=== PATIENT | female | born 1955 | race Caucasian/White ===

== ENCOUNTER → 2019-05-03 | Day surgery (SDC) | payer BC ==
[~2019-05-03] MED LIST: BENICAR HCT 401 EACH; FENTANYL CITRATE/PF 100MCG/2 ML INJ ONE; LIDOCAINE HCL 2% LOCAL INJ 5 ML SDV VIAL INJ ONE; MIDAZOLAM HCL 2 MG/2 ML VIAL ONE; PROPOFOL IV EMULSION 10 MG/ML 20 ML VIAL ONE
[2019-05-03 08:10] VITALS: BP 122/70
--- NOTE | 2019-05-03 13:33 | Operative Report ---
DATE OF PROCEDURE: 05/03/2019 SURGEON: Néstor Avalos MD PREOPERATIVE DIAGNOSIS: Gastroesophageal reflux disease. POSTOPERATIVE DIAGNOSES: 1. Hiatal hernia. 2. Gastroesophageal reflux disease. 3. Distal esophagitis. PREOPERATIVE INDICATION: Assess for mucosal disease. PROCEDURES: Esophagogastroduodenoscopy with distal esophageal biopsy (CPT 27526). ANESTHESIA: Moderate sedation. ASSISTANTS: None. FLUIDS: As per anesthesia. ESTIMATED BLOOD LOSS: Minimal. DRAINS: None. COMPLICATIONS: None. SPECIMENS: Cold forceps biopsy of distal esophagus. GRAFTS: None. FINDINGS: 1. Hiatal hernia. 2. Distal esophagitis. PROCEDURE IN DETAIL: The patient was brought to the endoscopy suite and sedated with IV propofol. A preprocedure pause was performed. An adult sized endoscope was introduced to the oropharynx and guided to the duodenum. No proximal duodenal abnormalities were noted. The stomach mucosa appeared fine. There was distal esophagitis at the GE junction and evidence for a hiatal hernia. A biopsy was obtained of the distal esophagus where the inflammation was noted. Prior to removing the endoscope, the stomach was desufflated. The endoscope was removed. The patient tolerated the procedure well. Type of wound was type 1, clean. Néstor Avalos MD C/MODL /[id number]
== END | disposition home or self-care (01) ==
LOC: OR 05:33
PROVIDERS: ATTEND Surgery
DX: K21.9 Gastro-esophageal reflux disease without esophagitis (principal); K20.9 Esophagitis, unspecified; K22.8 Other specified diseases of esophagus; K44.9 Diaphragmatic hernia without obstruction or gangrene; I10 Essential (primary) hypertension; R06.02 Shortness of breath; E66.01 Morbid (severe) obesity due to excess calories; Z68.43 Body mass index [BMI] 50.0-59.9, adult
CPT/HCPCS: 43239; 88305; J2001; J2250; J2704; J3010

== ENCOUNTER → 2019-05-27 | Outpatient (CLI) | payer BC ==
[~2019-05-27] MED LIST changes: +ATENOLOL50 MG; -FENTANYL CITRATE/PF 100MCG/2 ML INJ ONE; -LIDOCAINE HCL 2% LOCAL INJ 5 ML SDV VIAL INJ ONE; -MIDAZOLAM HCL 2 MG/2 ML VIAL ONE; -PROPOFOL IV EMULSION 10 MG/ML 20 ML VIAL ONE
--- NOTE | 2019-05-27 17:54 | Myoview Stress Test ---
DATE OF STUDY: 05/27/2019 08:18:00 Stress Test - Treadmill ONLY PROCEDURE TITLE: Rest/stress single isotope SPECT imaging with pharmacologic stress and gated SPECT imaging. INDICATION: Chest pain. PROCEDURE IN DETAIL: The patient performed treadmill exercise using a Damon protocol exercising for 3 minutes and 22 seconds to stage I and completing estimated workload of 4.6 metabolic equivalents (METs). The heart rate was 87 beats per minute at rest and increased to 138 beats per minute at peak exercise, which is 88% of the maximum predicted heart rate. The resting blood pressure 144/85 mmHg and increased to 175/105 mmHg, which is a normal response. The resting electrocardiogram demonstrated normal sinus rhythm. There were no ST-segment changes suggestive of myocardial ischemia. Myocardial perfusion imaging was performed at rest following the injection of 11 mCi of tetrofosmin. At peak pharmacologic effect, the patient was injected with 33 mmHg of tetrofosmin and gated post-stress tomographic imaging was performed. FINDINGS: The overall quality of study is poor. Left ventricular cavity is noted to be normal size on the rest and stress studies. SPECT images demonstrate a large moderately severe perfusion defect in the inferior wall and apex at rest, which persist at stress. Gated SPECT imaging reveals normal myocardial thickening and wall motion. The left ventricular ejection fraction was calculated to be 51%. IMPRESSION: Myocardial perfusion imaging is abnormal. There is a large nontransmural scar in the inferior wall, cannot rule out attenuation artifact. The overall left ventricular systolic function was normal without regional wall motion abnormalities. Shireen Bell MD ABS/MODL /[id number]
== END ==
LOC: NM 08:10
PROVIDERS: ATTEND Internal Medicine Interventional Cardiology
DX: I20.8 Other forms of angina pectoris (principal); R06.00 Dyspnea, unspecified
CPT/HCPCS: 78452; 93017; A9502

== ENCOUNTER 2019-05-31 13:57 | Inpatient (IN) | payer BC ==
[~2019-05-31] VITALS: Ht 147.3 cm; Wt 111.1 kg
[~2019-05-31 13:57] MED LIST changes: +ACETAMINOPHEN 1000 MG/100 ML 100 ML IV ONE; +BUPIVACAINE 0.25% 30ML SDV INJ ONE; +CEFAZOLIN SOD 1 GM/NS 50ML 100 ML IV ONE; +LIDOCAINE HCL (LTA) 4 ML SOLN ONE; +SCOPOLAMINE 1.5 MG PATCH ONE; +SUGAMMADEX SODIUM 200 MG/2 ML VIAL IV ONE
[2019-05-31] MEDS ORDERED: FENTANYL CITRATE/PF 100MCG/2 ML INJ ONE ×2 (14:03→14:43)
[2019-05-31] MEDS ORDERED: MIDAZOLAM HCL 2 MG/2 ML VIAL ONE (14:03)
[2019-05-31] MEDS ORDERED: ONDANSETRON HCL INJ 2MG/ML 2ML 2 MG/ML VIAL ONE ×3 (14:48→18:04)
[2019-05-31] MEDS ORDERED: HYDROMORPHONE 1MG/1ML INJ ONE (15:30)
[2019-05-31] MEDS ORDERED: PROMETHAZINE HCL (IM) 25 MG/ML VIAL ONE (15:36)
--- NOTE | 2019-05-31 15:53 | History and Physical ---
CHIEF COMPLAINT: "I had weight loss surgery." HISTORY OF PRESENT ILLNESS: This is a 64-year-old white woman, who was admitted to [facility] with diagnosis of extreme obesity, BMI of 51, complicating underlying hypertension. The patient today underwent successful laparoscopic sleeve gastrectomy as well as hiatal hernia repair. The patient tolerated surgery quite well. The patient voiced no complaints. REVIEW OF SYSTEMS: GENERAL: Weight is stable. No fever or chills. HEENT: No headaches. No visual changes. CARDIOVASCULAR: No chest pain. No shortness of breath or cough. GI: She does have some abdominal discomfort. Denies any nausea or vomiting. Denies any belching or flatus. : Tyson catheter removed. NEUROMUSCULAR: No limb weakness or numbness. PAST MEDICAL HISTORY: 1. Extreme obesity. 2. Hypertension. PAST SURGICAL HISTORY: 1. Hysterectomy. 2. Left rotator cuff surgery. 3. Laparoscopic sleeve gastrectomy and hiatal hernia repair today. FAMILY HISTORY: Noncontributory. SOCIAL HISTORY: This woman is , lives with her . No history of tobacco or alcohol use. 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 HOME MEDICATIONS: 1. Atenolol 50 mg daily. 2. Olmesartan/hydrochlorothiazide 40/12.5 once daily. PHYSICAL EXAMINATION: GENERAL: She is somnolent, but arousable. She is pleasant, cooperative with exam. Does not appear to be any obvious distress. VITAL SIGNS: Height 4 feet 10 inches, weight is 245 pounds. BMI 51. Blood pressure 114/68, pulse 83, respiratory rate 16, temperature 97.4, and oxygen saturation 100% on room air. INTEGUMENT: Skin is warm and dry. No pallor, jaundice, or diaphoresis. HEENT: Anicteric sclerae. Moist mucous membranes. NECK: Supple. CARDIOVASCULAR: Distant heart sounds. Regular rate and rhythm. LUNGS: No rales, rhonchi, or wheezes. ABDOMEN: Obese, soft. No bowel sounds auscultated. The laparoscopic trocar sites are clean, dry, and intact. EXTREMITIES: No edema or deformity. NEUROLOGIC: Intact. DIAGNOSES: 1. Extreme obesity, BMI of 51, complicating underlying hypertension. 2. Status post laparoscopic sleeve gastrectomy. 3. Laparoscopic hiatal hernia repair. 4. Hypertensive heart disease. HOSPITAL COURSE: 1. Restart home blood pressure medications. 2. Pain control. 3. Encourage incentive spirometer usage to prevent atelectasis. 4. Start enoxaparin twice a day, first dose this evening that will help prevent deep venous thrombosis. 5. Mobilize patient. 6. Pain control. I would like to thank Dr. Avalos for involving me in the care of this patient. MD EDWIN Tsai/KATELIN /[id number] MTDFilomena
[2019-05-31] MEDS ORDERED: METOCLOPRAMIDE HCL 10 MG/2ML VIAL ONE (17:03)
[2019-05-31] MEDS ORDERED: EPHEDRINE SULFATE INJ 50 MG/ML VIAL ONE (18:04)
[2019-05-31] MEDS ORDERED: DEXAMETHASONE SOD PHOS INJ 4 MG/ML VIAL ONE (18:04)
[2019-05-31] MEDS ORDERED: LIDOCAINE HCL 2% LOCAL INJ 5 ML SDV VIAL INJ ONE (18:04)
[2019-05-31] MEDS ORDERED: LIDOCAINE HCL 2% JELLY 5 ML TUBE ONE (18:04)
[2019-05-31] MEDS ORDERED: ROCURONIUM BROMIDE 10 MG/ML 5ML VIAL ONE (18:04)
[2019-05-31] MEDS ORDERED: SEVOFLURANE INHAL SOLN 250 ML PEN BTL ONE (18:04)
[2019-05-31] MEDS ORDERED: PROPOFOL IV EMULSION 10 MG/ML 20 ML VIAL ONE (18:04)
--- NOTE | 2019-05-31 19:00 | NUR ---
RECEIVED PATIENT FROM OR IN BEDSIDE SHIFT REPORT. PATIENT A&OX3. PAIN REPORTED /10, WILL MEDICATE. ABDOMINAL TROCHAR SITES COVERED WITH DERMABOND, C/D/I. SURROUNDING SKIN NORMAL. NO DRAINAGE. LUNG SOUNDS CLEAR. BOWEL SOUNDS ACTIVE. PEDAL PULSES PALPABLE. SCDS IN PLACE. L HAND IV ASYMPTOMATIC, INTACT, AND PATENT. PATIENT REPORTS NO NAUSEA AT THIS TIME. BED LOCKED IN LOWEST POSOTION, SIDE RAILS UPX2, CALL LIGHT IN REACH. FAMILY MEMBER AT BEDSIDE.
[2019-05-31 19:30] VITALS: BP 111/57
[2019-05-31 20:00] VITALS: BP 111/57
[2019-05-31] MEDS ORDERED: SCOPOLAMINE 1.5 MG PATCH TOP SCH (20:15)
[2019-05-31] MEDS ORDERED: ONDANSETRON HCL INJ 2MG/ML 2ML 2 MG/ML VIAL IV PRN (20:15)
[2019-05-31] MEDS ORDERED: MORPHINE SULFATE 2 MG/ML SYR 1ML IV PRN (20:15)
--- NOTE | 2019-05-31 20:23 | Operative Report ---
DATE OF PROCEDURE: 05/31/2019 SURGEON: Néstor Avalos MD PREOPERATIVE DIAGNOSES: 1. Hiatal hernia. 2. Gastroesophageal reflux disease. 3. Morbid obesity. 4. BMI 51. POSTOPERATIVE DIAGNOSES: 1. Hiatal hernia. 2. Gastroesophageal reflux disease. 3. Morbid obesity. 4. BMI 51. PREOPERATIVE INDICATION: Treat disease, prevent complications related to hiatal hernia. PROCEDURES: Laparoscopic hiatal hernia repair. ANESTHESIA: General. MARINE ENGINEERING TEACHER: Liban Matos, surgical 1st temporary administrative assistant (needed due to complexity of case). FLUIDS: As per anesthesia. ESTIMATED BLOOD LOSS: Minimal. DRAINS: None. COMPLICATIONS: None. SPECIMENS: None. GRAFTS: None. FINDINGS: [id number] size hiatal hernia. PROCEDURE IN DETAIL: The patient was brought to the operating room and was intubated under general endotracheal anesthesia. She was sterilely prepped and draped in the usual fashion. A preprocedure pause was performed identifying the patient, use of perioperative antibiotics, intended procedure, and staff surgeon. Access was gained via a 5 mm left subcostal incision using a Veress needle. The abdomen was insufflated to a pressure of 15 mmHg pressure. A 0 degree 5 mm Optiview trocar was placed under direct visualization. No injuries were noted. Four additional trocars were placed in standard position. A liver retractor was used to expose the hiatus. The gastrohepatic ligament was incised using a Harmonic Scalpel and I then was able to reduce and identified a hiatal hernia by mobilizing it from the right and left leigh of the diaphragm as well as anteriorly. Once this was completed, I then repaired the hiatus with 2-0 Surgidac suture in interrupted fashion. We then verified hemostasis and removed the liver retractor and desufflated the abdomen. The incision sites were closed with 4-0 Monocryl suture in a subcuticular fashion. Dermabond dressings were applied. A 0.25% bupivacaine was used both at the preperitoneal incision sites. The patient tolerated the procedure well. Type of wound was type 1, clean. Néstor Avalos MD [facility] [place]/MODL /[id number]
--- NOTE | 2019-05-31 20:27 | Operative Report ---
DATE OF PROCEDURE: 05/31/2019 SURGEON: Néstor Avalos MD This is a self-pay portion. PREOPERATIVE DIAGNOSES: 1. Morbid obesity, BMI 51. 2. Hiatal hernia. POSTOPERATIVE DIAGNOSES: 1. Morbid obesity, BMI 51. 2. Hiatal hernia. PREOPERATIVE INDICATION: Treat disease, prevent complications related to comorbid conditions of obesity. PROCEDURE: Laparoscopic vertical sleeve gastrectomy with hiatal hernia repair. ANESTHESIA: General. CONTENT MANAGEMENT CONSULTANT: Liban Matos, surgical 1st research assistant member (needed due to complexity of case). FLUIDS: 500 mL crystalloid. ESTIMATED BLOOD LOSS: 45 mL. DRAINS: None. COMPLICATIONS: None. SPECIMENS: Partial stomach. GRAFTS: None. FINDINGS: 1. [id number] hiatal hernia. 2. Negative intraoperative leak. PROCEDURE IN DETAIL: The patient was brought to the operating room and was intubated under general endotracheal anesthesia. She was sterilely prepped and draped in the usual fashion. A preprocedure pause was performed identifying the patient, use of perioperative antibiotics, intended procedure, and staff surgeon. Access was gained via a 5 mm left subcostal incision using a Veress needle. The abdomen was insufflated. Four additional trocars were placed in the standard position. The liver retractor was used to expose the stomach and hiatus. After repairing the hiatal hernia, I then mobilized the greater curvature of stomach from about 4 cm proximal to the pyloric valve to the left leigh of the diaphragm using the [place] LigaSure device. I then had anesthesia placed a 32-Danish bougie along the lesser curve of the stomach. The greater curvature of stomach was resected with multiple firings of a 60 mm purple load Covidien stapling device. We then did an intraoperative leak test, no leaks were identified. The bougie/insufflator was removed. The specimen was removed through the right periumbilical port site. The port site was closed with 0 Vicryl suture using the Pete Lakhani technique. We then verified hemostasis and applied clips, where there were necessary in the sleeve line. I did do a upwrvr-uz-eycnv suture on the distal end of the sleeve staple line, where there was some mild oozing, this helped thus achieving complete hemostasis. We then desufflated the abdomen and removed the liver retractor. The trocars were removed. Incision sites were closed with 4-0 Monocryl suture in a subcuticular fashion. Dermabond dressings were applied. A 0.25% bupivacaine was used both at the preperitoneal incision sites. The patient tolerated the procedure well. Type of wound was type 2, clean, contaminated. All surgical sponge and instruments counts were correct. MD MYKE Prince/KATELIN /[id number]
[2019-05-31] MEDS: SODIUM CHLORIDE 0.9% 1000ML 1,000 ML IV SCH (20:30)
--- NOTE | 2019-05-31 20:30 | NUR ---
L HAND 20G TENDER UPON FLUSHING, PATIENT REQUESTS NEW IV. L HAND IV REMOVED, CATHETER TIP INTACT, PRESSURE DRESSING APPLIED. NEW IV STARTED TO L AV 20G, FIRST ATTEMPT. RECONNECTED NS @ 80ML/HR. WILL CONTINUE TO MONITOR.
[2019-05-31] MEDS: ACETAMINOPHEN 1000 MG/100 ML IV PRN (22:01)
[2019-05-31 23:12] VITALS: BP 141/79
[2019-05-31 23:18] VITALS: BP 111/57
[2019-06-01] VITALS: BP 130/67
[2019-06-01 04:00] VITALS: BP 143/79
[2019-06-01] MEDS: ACETAMINOPHEN 1000 MG/100 ML IV PRN (04:49)
--- NOTE | 2019-06-01 05:00 | NUR ---
PATIENT AMBULATED TO TOILET WITH ASSISTANCE MULTIPLE TIMES OVERNIGHT. NO NAUSEA REPORTED. PAIN WELL CONTROLLED WITH IV TYLENOL. WILL CONTINUE TO MONITOR.
[2019-06-01] MEDS: SODIUM CHLORIDE 0.9% 1000ML 1,000 ML IV SCH (06:33)
--- NOTE | 2019-06-01 07:00 | NUR ---
RCD PT AT BED PT IS ALERT AND ORIENTED RESTING ON BED NO SIGNS OF ANY DISTRESS NOTED IV PATENT BED LOW AND LOCKED CALL LIGHT IN REACH
[2019-06-01] MEDS ORDERED: HYDROCODONE/APAP 7.5MG-325MG 1 EA TAB PO PRN (07:30)
[2019-06-01 07:55] VITALS: BP 127/75
[2019-06-01 07:59] VITALS: BP 127/75
--- NOTE | 2019-06-01 08:18 | NUR ---
Progress Note S: No major complaints O: af, vss General- no distress Abdomen- soft, incisions c/d/i A/P: POD 1, s/p lap HH repair with LSG -Clears, ambulate, IS, OOB to chair -Dc home today -Dietary and f/u instructions given to patient
[2019-06-01] MEDS ORDERED: ENOXAPARIN SOD INJ 40 MG/0.4 ML SYR SC SCH (09:00)
[2019-06-01 09:26] LABS: BASOPHILS % 0.1 % (0.0-1.0); HEMATOCRIT 36.7 % (34.2-44.1); HEMOGLOBIN 12.1 g/dL (12.0-16.0); LYMPHOCYTES # (AUTO) 2.1 (1.0-3.2); LYMPHOCYTES % 15.5 % (18.0-39.1); MEAN CORPUSCULAR HEMOGLOBIN 30.3 pg (28-32); MONOCYTES # (AUTO) 1.2 (0.2-0.8); MONOCYTES % 8.8 % (4.4-11.3); NEUTROPHILS # (AUTO) 10.2 (2.1-6.9); NEUTROPHILS % 75.2 % (38.7-80.0); PLATELET COUNT 309 x10e3/uL (140-360); RED BLOOD COUNT 3.99 x10e6/uL (3.6-5.1); RED CELL DISTRIBUTION WIDTH 13.4 % (11.7-14.4)
[2019-06-01 09:44] LABS: ALANINE AMINOTRANSFERASE 56 IU/L (0-55); ALBUMIN 3.5 g/dL (3.5-5.0); ALBUMIN/GLOBULIN RATIO 0.9 (0.8-2.0); ALKALINE PHOSPHATASE 87 IU/L (40-150); ANION GAP 15.1 mmol/L (8-16); BLOOD UREA NITROGEN 23 mg/dL (7-26); BUN/CREATININE RATIO 25 (6-25); CARBON DIOXIDE 25 mmol/L (22-29); CHLORIDE 104 mmol/L (98-107); CREATININE, SERUM 0.91 mg/dL (0.57-1.11); EST GLOMERULAR FILTRATION RATE > 60 ML/MIN (60-); GLUCOSE 105 mg/dL (74-118); MAGNESIUM 1.8 MG/DL (1.3-2.1); POTASSIUM 4.1 mmol/L (3.5-5.1); SODIUM 140 mmol/L (136-145)
[2019-06-01 10:05] LABS: PHOSPHORUS 2.9 MG/DL (2.3-4.7)
--- NOTE | 2019-06-01 10:30 | NUR ---
PAGED DR WEISS AND NOTIFIED THE LABS HE SAID OK TO DISCHARGE
--- NOTE | 2019-06-01 11:21 | Discharge Summary ---
ADMITTING DIAGNOSES: 1. Extreme obesity, BMI of 51, complicating underlying hypertensive heart disease. 2. Hypertensive heart disease. DISCHARGE DIAGNOSES: 1. Status post laparoscopic sleeve gastrectomy and hiatal hernia repair. 2. Extreme obesity, BMI of 51, complicating underlying hypertension. 3. Hypertensive heart disease. HOSPITAL COURSE: This is a 64-year-old white woman, who was initially admitted to [facility] with diagnosis of extreme obesity, BMI of 51, complicating underlying hypertension. She is also admitted with diagnosis of hiatal hernia. During this hospitalization, the patient underwent successful laparoscopic sleeve gastrectomy and hiatal hernia repair. The patient tolerated surgery quite well. On day of discharge, the patient was tolerating clear liquid diet. CONDITION ON DISCHARGE: Stable. DISCHARGE MEDICATIONS: 1. Atenolol 50 mg daily. 2. Olmesartan/hydrochlorothiazide 40/12.5 mg once daily .. 3. Ondansetron 4 mg one pill every 6 hours p.r.n. pain, 20 prescribed, no refills. 4. Acetaminophen with codeine (300 mg/30 mg) one tablet every 4 hours p.r.n. pain, 25 pills prescribed, no refills. FOLLOWUP INSTRUCTIONS: The patient is instructed to follow up Dr. Néstor Avalos within [address] Luciano Lackey, her primary care physician within 2 weeks. MD CLAUDIA TsaiO/KAYCEL /[id number] cc: MD Néstor Dalton MD
--- NOTE | 2019-06-01 11:48 | NUR ---
PATIENT WENT HOME IN SAFE CONDITION WITH HER
[2019-06-01 11:58] VITALS: BP 160/89
--- NOTE | 2019-06-01 17:22 | NUR ---
Received consult for bariatric diet education. Provided pt with information regarding gastric sleeve post surgery diet guidelines. Pt was not interested in verbal education at time of visit and stated she will read provided materials at a later time. Encouraged pt to contact RD if she has questions.
== END 2019-06-01 11:49 | disposition home or self-care (01) | DRG 621 ==
LOC: OR 13:57 → MED/SURG 19:28
PROVIDERS: ADMIT Internal Medicine; ATTEND Internal Medicine
PROC: 0DB64Z3 Excision of Stomach, Percutaneous Endoscopic Approach, Vertical (ICD-10-PCS; principal; 2019-05-31 12:30)
DX: E66.01 Morbid (severe) obesity due to excess calories (principal); Z68.43 Body mass index [BMI] 50.0-59.9, adult; I11.9 Hypertensive heart disease without heart failure; K21.9 Gastro-esophageal reflux disease without esophagitis; K44.9 Diaphragmatic hernia without obstruction or gangrene
CPT/HCPCS: 36415; 80053; 83735; 84100; 85025; 96360; J0690; J1100; J1170; J1650; J2001; J2250; J2405; J2550; J2765; J3010; J7030

== ENCOUNTER 2020-06-29 10:04 | Emergency (ER) | payer BC, OTHER ==
[~2020-06-29] VITALS: Ht 147.3 cm; Wt 111.1 kg
[~2020-06-29 10:04] MED LIST changes: -ACETAMINOPHEN 1000 MG/100 ML 100 ML IV ONE; -BUPIVACAINE 0.25% 30ML SDV INJ ONE; -CEFAZOLIN SOD 1 GM/NS 50ML 100 ML IV ONE; -LIDOCAINE HCL (LTA) 4 ML SOLN ONE; -SCOPOLAMINE 1.5 MG PATCH ONE; -SUGAMMADEX SODIUM 200 MG/2 ML VIAL IV ONE
[2020-06-29] MEDS ORDERED: CEFTRIAXONE SOD 1 GM/50 ML BAG IV ONE (10:15)
[2020-06-29] MEDS ORDERED: LACTATED RINGER'S 1,000 ML INJ ONE (10:30)
[2020-06-29] MEDS ORDERED: ACETAMINOPHEN 325 MG TAB PO ONE (10:30)
[2020-06-29 10:34] LABS: BASOPHILS % 0.3 % (0.0-1.0); EOSINOPHILS # (AUTO) 0.1 (0.0-0.4); EOSINOPHILS % 0.8 % (0.0-6.0); HEMATOCRIT 41.5 % (34.2-44.1); HEMOGLOBIN 13.5 g/dL (12.0-16.0); LYMPHOCYTES # (AUTO) 1.2 (1.0-3.2); MEAN CORPUSCULAR HEMOGLOBIN 29.1 pg (28-32); MEAN CORPUSCULAR HGB CONC 32.5 g/dL (31-35); MEAN CORPUSCULAR VOLUME 89.4 fL (81-99); MONOCYTES # (AUTO) 0.6 (0.2-0.8); MONOCYTES % 9.8 % (4.4-11.3); NEUTROPHILS # (AUTO) 4.2 (2.1-6.9); NEUTROPHILS % 69.4 % (38.7-80.0); PLATELET COUNT 165 x10e3/uL (140-360); RED BLOOD COUNT 4.64 x10e6/uL (3.6-5.1); RED CELL DISTRIBUTION WIDTH 13.5 % (11.7-14.4)
[2020-06-29 11:00] LABS: ALANINE AMINOTRANSFERASE 32 IU/L (0-55); ALBUMIN 3.5 g/dL (3.5-5.0); ALBUMIN/GLOBULIN RATIO 0.9 (0.8-2.0); ALKALINE PHOSPHATASE 122 IU/L (40-150); ANION GAP 15.9 mmol/L (8-16); BLOOD UREA NITROGEN 16 mg/dL (7-26); BUN/CREATININE RATIO 21 (6-25); CALCIUM 8.1 mg/dL (8.4-10.2); CARBON DIOXIDE 25 mmol/L (22-29); CHLORIDE 107 mmol/L (98-107); CREATININE, SERUM 0.75 mg/dL (0.57-1.11); EST GLOMERULAR FILTRATION RATE > 60 ML/MIN (60-); GLUCOSE 98 mg/dL (74-118); POTASSIUM 3.9 mmol/L (3.5-5.1); SODIUM 144 mmol/L (136-145)
[2020-06-29] MEDS ORDERED: AZITHROMYCIN 500MG/NS 250 ML 250 ML IV ONE (11:00)
[2020-06-29 11:05] LABS: B-TYPE NATRIURETIC PEPTIDE2 20.8 pg/mL (0-100)
[2020-06-29] MEDS ORDERED: CEFTRIAXONE SOD 1 GM in SODIUM CHLORIDE 0.9% 50ML 50 ML IV ONE (11:45)
== END 2020-06-29 11:46 | disposition home or self-care (01) ==
LOC: ER 10:11
DX: U07.1 COVID-19 (principal); R06.02 Shortness of breath; I10 Essential (primary) hypertension; Z98.84 Bariatric surgery status
CPT/HCPCS: 36415; 71045; 80053; 83605; 83880; 84484; 85025; 87040; 93005; 99284; J7121

== ENCOUNTER 2023-11-30 19:09 | Emergency (ER) | payer MEDICARE ==
[~2023-11-30] VITALS: Ht 147.3 cm; Wt 90.7 kg
[2023-11-30 20:20] VITALS: PULSE 98; RESP 18; TEMP 98.9; O2SAT 100
== END 2023-11-30 20:20 | disposition home or self-care (01) ==
LOC: ER 19:14
DX: S40.011A Contusion of right shoulder, initial encounter (principal); W01.0XXA Fall on same level from slipping, tripping and stumbling without subsequent striking against object, initial encounter; Y93.01 Activity, walking, marching and hiking; Y92.89 Other specified places as the place of occurrence of the external cause; I10 Essential (primary) hypertension; Z98.84 Bariatric surgery status
CPT/HCPCS: 99283